=== PATIENT | female | born 1985 | race African-American/Black ===

== ENCOUNTER 2018-02-26 14:49 | Inpatient (IN) ==
[2018-02-26] MEDS ORDERED: ONDANSETRON 4 MG/2 ML VIAL IV PRN (15:17)
[2018-02-26 15:48] LABS: Basophils % 0.3 % (0.0-0.8); Eosinophils # 0.1 10*3/uL (0.0-0.87); Eosinophils % 1.5 % (0.00-10.9); Hematocrit 32.4 VOL% (35.7-47.0); Hemoglobin 10.4 GM/DL (12.0-16.0); Immature Granulocytes % 0.2 %; Immature Granulocytes Absolute 0.01 #; Lymphocytes % 52.1 % (21.3-54.2); Mean Corpuscular HGB Conc 32.1 GM/DL (32-36); Mean Corpuscular Hemoglobin 28 PG (27-34); Mean Corpuscular Volume 86.4 FL (87-102); Mean Platelet Volume 11.4 FL (9.6-12.0); Monocytes # 0.6 10*3/uL (0.11-0.8); Monocytes % 9.8 % (1.7-12.7); Neutrophils # 2.1 10*3/uL (1.4-7.4); Neutrophils % 36.1 % (38.7-73.9); Platelet Count 183 T/CUMM (130-400); Red Blood Count 3.75 MC/CUMM (3.8-5.5); Red Cell Distribution Width 13.2 % (9.3-17.3); White Blood Count 5.8 T/CUMM (4-12)
[2018-02-26] MEDS ORDERED: DINOPROSTONE 10 MG VAG.INSERT VAG ONE (16:38)
[2018-02-26 18:58] LABS: Hypochromasia Slight; Platelet Estimate Adequate
[2018-02-26] MEDS: LACTATED RINGERS 1,000 ML IV SCH ×2 (19:49→22:34)
[2018-02-26] MEDS: MEPERIDINE 50 MG/1 ML VIAL IV PRN (19:50)
[2018-02-26] MEDS ORDERED: ePHEDrine 50 MG/ML AMP IV PRN (21:20)
[2018-02-26] MEDS ORDERED: diphenhydrAMINE 50 MG/1 ML VIAL IV PRN ×2 (21:20)
[2018-02-26] MEDS ORDERED: PROMETHAZINE 25 MG/1 ML VIAL IM PRN (21:20)
[2018-02-26] MEDS ORDERED: hydrOXYzine HCL 25 MG/1 ML VIAL IM PRN (21:20)
[2018-02-26] MEDS ORDERED: CITRIC ACID/SODIUM CITRATE 30 ML UDCUP PO ONE (21:22)
[2018-02-26] MEDS ORDERED: FAMOTIDINE 20 MG/2 ML VIAL IV ONE (21:22)
[2018-02-26] MEDS ORDERED: fentaNYL 2 MCG/ROPIV 0.2% EPID 150 ML EPIDURAL SCH (21:30)
[2018-02-27] MEDS ORDERED: ACETAMINOPHEN 500 MG TABLET PO PRN (00:24)
[2018-02-27 01:26] LABS: Apearance,Urine CLEAR (Clear); Bacteria,Urine Occasional /HPF (Few); Bilirubin,Urine Negative (Negative); Blood, Urine Negative (Negative); Glucose,Urine (UA) Negative (Negative); Ketones,Urine Negative (Negative); Mucus,Urine Occasional /LPF (Occasional); Nitrite,Urine Negative (Negative); Protein,Urine Negative; RBC,Urine 1 /HPF (0-4); Squamous Epithelial Cell,Urine Occasional /HPF (0-10); Urine Color Yellow (Yellow); Urine Specific Gravity 1.012 (1.001-1.035); Urine Urobilinogen < 2.0 EU/DL (0.2-1.0); WBC,Urine 1 /HPF (0-6)
[2018-02-27] MEDS ORDERED: TERBUTALINE 1 MG/1 ML VIAL SUBCUT ONE ×2 (02:19→02:23)
[2018-02-27] MEDS: LACTATED RINGERS 1,000 ML IV SCH (02:28)
[2018-02-27] MEDS ORDERED: OXYTOCIN/LR 20 UNIT/1,000 ML BAG IV ONE (04:14)
[2018-02-27 04:58] LABS: Cord Venous Blood HCO3 23.4 MMOL/L; Cord Venous Blood PCO2 40.9 MMHG; Cord Venous Blood PO2 38.5 MMHG
[2018-02-27] MEDS ORDERED: LIDOCAINE MPF 2% /EPI 20 ML VIAL ONE (05:22)
[2018-02-27] MEDS ORDERED: fentaNYL 100 MCG/2 ML VIAL ONE (05:22)
[2018-02-27] MEDS ORDERED: OXYTOCIN/LR 20 UNIT/1,000 ML BAG IV SCH (05:30)
[2018-02-27] MEDS ORDERED: HYDROmorphone 2 MG/1 ML VIAL IV PRN (06:01)
[2018-02-27] MEDS: MEPERIDINE 50 MG/1 ML VIAL IV PRN (08:35)
[2018-02-27] MEDS ORDERED: SIMETHICONE CHEW 80 MG TABLET PO PRN (09:39)
[2018-02-27] MEDS ORDERED: RHO(D) IMMUNE GLOBULIN 300 MCG SYRINGE IM ONE (09:39)
[2018-02-27] MEDS ORDERED: IBUPROFEN 800 MG TABLET ONE (10:25)
[2018-02-27] MEDS: IBUPROFEN 800 MG TABLET PO SCH ×2 (10:28→18:22)
[2018-02-27] MEDS: ceFAZolin 1,000 MG in SYRINGE 1 EACH IV SCH ×2 (12:22→20:40)
[2018-02-27] MEDS ORDERED: diphenhydrAMINE 50 MG/1 ML VIAL IV PRN (15:49)
[2018-02-27] MEDS ORDERED: diphenhydrAMINE 50 MG/1 ML VIAL ONE (15:50)
[2018-02-27] MEDS: MAGNESIUM HYDROXIDE SUSP 30 ML UDCUP PO PRN (21:17)
[2018-02-27] MEDS: DOCUSATE SODIUM 100 MG CAPSULE PO SCH (21:17)
[2018-02-28] MEDS: DOCUSATE SODIUM 100 MG CAPSULE PO SCH ×3 (01:18→20:09)
[2018-02-28] MEDS: IBUPROFEN 800 MG TABLET PO SCH ×4 (02:38→19:51)
[2018-02-28 05:27] LABS: Basophils % 0.3 % (0.0-0.8); Eosinophils # 0.1 10*3/uL (0.0-0.87); Eosinophils % 0.9 % (0.00-10.9); Hematocrit 24.8 VOL% (35.7-47.0); Hemoglobin 8.2 GM/DL (12.0-16.0); Immature Granulocytes % 0.4 %; Immature Granulocytes Absolute 0.04 #; Lymphocytes # 2.7 10*3/uL (1.4-4.0); Lymphocytes % 27.3 % (21.3-54.2); Mean Corpuscular HGB Conc 33.1 GM/DL (32-36); Mean Corpuscular Hemoglobin 28 PG (27-34); Mean Corpuscular Volume 84.4 FL (87-102); Mean Platelet Volume 11.4 FL (9.6-12.0); Monocytes # 0.8 10*3/uL (0.11-0.8); Neutrophils # 6.2 10*3/uL (1.4-7.4); Neutrophils % 63.1 % (38.7-73.9); Platelet Count 147 T/CUMM (130-400); Red Blood Count 2.94 MC/CUMM (3.8-5.5); Red Cell Distribution Width 13.4 % (9.3-17.3); White Blood Count 9.9 T/CUMM (4-12)
[2018-02-28] MEDS: MULTIVITAMIN (PRENATAL) TABLET PO SCH (08:36)
[2018-02-28] MEDS: FERROUS SULFATE 325 MG TABLET PO SCH ×2 (08:37→20:09)
[2018-02-28] MEDS: MAGNESIUM HYDROXIDE SUSP 30 ML UDCUP PO PRN ×2 (12:31→20:09)
[2018-03-01] MEDS: IBUPROFEN 800 MG TABLET PO SCH ×3 (04:18→21:44)
[2018-03-01] MEDS: MULTIVITAMIN (PRENATAL) TABLET PO SCH (08:45)
[2018-03-01] MEDS: DOCUSATE SODIUM 100 MG CAPSULE PO SCH ×2 (08:46→21:42)
[2018-03-01] MEDS: FERROUS SULFATE 325 MG TABLET PO SCH ×2 (08:46→21:42)
[2018-03-01] MEDS: MAGNESIUM HYDROXIDE SUSP 30 ML UDCUP PO PRN (21:42)
[2018-03-02] MEDS: IBUPROFEN 800 MG TABLET PO SCH ×2 (06:10→10:59)
[2018-03-02 07:50] VITALS: BP 139/76
[2018-03-02] MEDS: MULTIVITAMIN (PRENATAL) TABLET PO SCH (08:32)
[2018-03-02] MEDS: FERROUS SULFATE 325 MG TABLET PO SCH (08:32)
[2018-03-02] MEDS: DOCUSATE SODIUM 100 MG CAPSULE PO SCH (08:32)
[2018-03-02] MEDS ORDERED: DIPH/TET/ACEL PERT BOOSTER VACCINE 0.5 ML VIAL IM ONE (09:52)
== END 2018-03-02 11:45 | disposition home or self-care (01) | DRG 766 ==
LOC: N.LDOUT 14:49 → N.LD 14:52 → N.OB 02-27 09:26
PROVIDERS: ADMIT Obstetrics & Gynecology; ATTEND Obstetrics & Gynecology
PROC: LDCSECT (ICD-10-PCS; 2018-02-27 03:50)